=== PATIENT | female | born 1950 | race Caucasian/White ===

== ENCOUNTER 2018-01-09 00:20 | Emergency (ER) | payer MEDICARE, BC ==
[~2018-01-09] VITALS: Ht 165.1 cm; Wt 56.0 kg
[2018-01-09 00:32] VITALS: BP 109/49
[2018-01-09 01:12] LABS: CULTURE INDICATED? YES; MICROSCOPIC INDICATED
[2018-01-09] MEDS ORDERED: PHENAZOPYRIDINE 200 MG TABLET ONE (01:49)
[2018-01-09] MEDS ORDERED: CIPROFLOXACIN 500 MG TABLET ONE (01:50)
[2018-01-09] MEDS ORDERED: CIPROFLOXACIN 500 MG TABLET PO ONE (02:00)
[2018-01-09] MEDS ORDERED: PHENAZOPYRIDINE 200 MG TABLET PO ONE (02:00)
== END 2018-01-09 02:05 | disposition home or self-care (01) ==
LOC: ED 00:55
DX: N30.01 Acute cystitis with hematuria (principal); R30.0 Dysuria
CPT/HCPCS: 81001; 87077; 87086; 87186; 99284